=== PATIENT | female | born 1970 | race Caucasian/White ===

== ENCOUNTER 2024-01-05 08:38 | Day surgery (SDC) | payer OTHER ==
[2023-12-29 11:51] VITALS: BMI 16.6
[2024-01-05 09:33] VITALS: TEMP 97
[2024-01-05 09:45] VITALS: RESP 16
[2024-01-05 09:47] VITALS: BP 70/51; PULSE 75
== END 2024-01-05 10:48 | disposition home or self-care (01) ==
LOC: FASU-ENDO 08:38
PROVIDERS: ATTEND Internal Medicine Gastroenterology
PROC: 0DJD8ZZ Inspection of Lower Intestinal Tract, Via Natural or Artificial Opening Endoscopic (ICD-10-PCS; principal; 2024-01-05 09:09)
DX: Z12.11 Encounter for screening for malignant neoplasm of colon (principal)